=== PATIENT | female | born 1945 | race Caucasian/White ===

== ENCOUNTER → 2016-12-22 | Outpatient (CLI) | payer OTHER, BC ==
[~2016-12-22] VITALS: Ht 165.1 cm; Wt 56.8 kg
[~2016-12-22] MED LIST: ASPIR 8181 M1 PO; BIOTIN1000 MCG PO; CALCIUM 500 WI1 EAC2 PO; CENTRUM COMPLE1 EACH PO; CRESTOR10 MG PO; DULOXETINE HCL30 MG PO; FISH OIL300 MG PO; FLEXERIL10 MG PO; FLONASE16 G1 BOTH NARES; LYRICA100 MG PO; METOPROLOL SUCC25 MG PO; NORCO 5/3251 TABLET PO; ONDANSETRON HCL4 MG PO; PLAVIX75 MG PO; PROMETHAZINE HC25 M1 PO; SYNTHROID112 MCG PO; SYNTHROID88 MCG PO; TRAMADOL HCL50 MG PO; ULTRAM50 MG PO; VICODIN,LORT1 TABLET PO; VITAMIN B-12250 MCG PO; ZANAFLEX2 M1 PO
== END | disposition home or self-care (01) ==
LOC: AMB 09:27
DX: D12.4 Benign neoplasm of descending colon (principal); D12.2 Benign neoplasm of ascending colon; D12.5 Benign neoplasm of sigmoid colon; D12.8 Benign neoplasm of rectum; K63.5 Polyp of colon; Z86.010 Personal history of colon polyps; I25.10 Atherosclerotic heart disease of native coronary artery without angina pectoris; M19.90 Unspecified osteoarthritis, unspecified site; E78.5 Hyperlipidemia, unspecified; E03.9 Hypothyroidism, unspecified; I34.1 Nonrheumatic mitral (valve) prolapse; Z95.5 Presence of coronary angioplasty implant and graft; Z82.49 Family history of ischemic heart disease and other diseases of the circulatory system; Z82.3 Family history of stroke; Z80.0 Family history of malignant neoplasm of digestive organs; Z79.82 Long term (current) use of aspirin; Z88.5 Allergy status to narcotic agent; Z88.2 Allergy status to sulfonamides
CPT/HCPCS: 88305